=== PATIENT | male | born 2005 | race Hispanic/Latino ===

== ENCOUNTER 2025-01-28 14:55 | Emergency (ER) | payer SELFPAY ==
[2025-01-28 16:05] LABS: BASOPHILS % 1.0 % (0.0-1.0); EOSINOPHILS % 7.0 % (0.0-6.0); LYMPHOCYTES % 32.5 % (18.0-39.1); MONOCYTES % 7.6 % (4.4-11.3); NEUTROPHILS % 51.7 % (38.7-80.0); RED CELL DISTRIBUTION WIDTH 12.1 % (11.7-14.4)
[2025-01-28 16:14] LABS: INR 0.86
[2025-01-28] MEDS ORDERED: IOPAMIDOL 370 MG/ML 100 ML INFUS..BTL INJ ONE (16:22)
[2025-01-28] MEDS: ONDANSETRON HCL INJ 2MG/ML 2ML 2 MG/ML VIAL IV STA (16:22)
[2025-01-28] MEDS: SODIUM CHLORIDE 0.9% 1000ML 1,000 ML IV STA (16:22)
[2025-01-28 16:23] LABS: EST GLOMERULAR FILTRATION RATE 131.0 ML/MIN (>=60)
[2025-01-28] MEDS: DICYCLOMINE HCL 20 MG/2 ML VIAL IM ONE (17:29)
[2025-01-28 17:32] LABS: AMPHETAMINES SCREEN,URINE NEGATIVE (NEGATIVE); CANNABINOIDS SCREEN,URINE NEGATIVE (NEGATIVE); COCAINE SCREEN,URINE NEGATIVE (NEGATIVE); METHADONE SCREEN, URINE NEGATIVE (NEGATIVE); OPIATES SCREEN,URINE NEGATIVE (NEGATIVE)
[2025-01-28 17:42] LABS: LEUKOCYTE ESTERASE ,URINE NEGATIVE (NEGATIVE); PROTEIN,URINE DIPSTICK NEGATIVE (NEGATIVE); URINE UROBILINOGEN 0.2 mg/dL (0.2 - 1)
[2025-01-28 17:43] LABS: EPITHELIAL CELLS,URINE FEW /LPF; WBC,URINE (MAN) 0-5 /HPF (0-5)
[2025-01-28] MEDS ORDERED: ONDANSETRON ODT4 MG PO (18:56)
[2025-01-28 19:14] VITALS: PULSE 59; RESP 16; TEMP 98.1; O2SAT 100
== END 2025-01-28 19:21 | disposition home or self-care (01) ==
LOC: ER 15:56
DX: R11.2 Nausea with vomiting, unspecified (principal); K52.9 Noninfective gastroenteritis and colitis, unspecified; R10.9 Unspecified abdominal pain; F17.210 Nicotine dependence, cigarettes, uncomplicated
CPT/HCPCS: 36415; 74177; 80053; 80307; 81001; 83690; 83735; 85025; 85610; 85730; 99284; J0500; J2405; J2470; J7030; Q9967